=== PATIENT | male | born 1970 | race Caucasian/White ===

== ENCOUNTER → 2016-12-30 | Outpatient (CLI) | payer OTHER ==
--- NOTE | 2016-12-30 11:08 | NUR ---
Eval 2 Hr/Client presented for an eval as a referral from his ship's officer.
--- NOTE | 2017-01-01 07:10 | CDE ---
ADMIT: 12/30/2016 RM/LOC: [facility] MR#: [id number] [address] [place], [place] [id number] ROSE STINSON [address] [address] Chemical Dependency Evaluation SEX: M AGE: 46 : 1970 A. DEMOGRAPHICS: NAME: Rose Stinson DATE OF : 1970 EVALUATING COUNSELOR: Jose Daniel Watson, , LMHP, LADC, CSAT DATE OF EVALUATION: 12/30/2016 B. PRESENTING PROBLEM/CHIEF COMPLAINT: This client was on parole for a robbery charge. He was referred here for this evaluation by his energy control officer, Mary Lou Isidro. C. MEDICAL HISTORY: The client stated that he has asthma and he uses inhaler for that. He does have a bad back right now, but other than that, he denied having any medical issues. D. WORK/SCHOOL/ HISTORY: WORK: Currently, this client is working at [employer]. 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 Did not give any prior work history. EDUCATION: This client received his GED. He would like to learn more about [employer], possibly go to school to do that. 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 : This client has never been in the . E. ALCOHOL/DRUG ASSESSMENT SUMMARY: ALCOHOL: This client first drank alcohol at age 13. He minimized his drinking quite a bit. He said he would only drink 1 or 2 drinks once a month. He said his last use of alcohol was in 2010 right before he went to group home when he had a 12 pack. MARIJUANA: This client first smoked marijuana at age 15. He said he would smoke a joint about every 6 months. His last use of marijuana was in 2010 right before he went to group home, he smoked a joint. COCAINE: Client first snorted cocaine at age 26. He said he would snort 1 line a couple of times a year. He has not snorted any cocaine since 2007. METHAMPHETAMINE: This client first smoked meth at age 31, said he would do it about 3 times a year and has not smoked any meth since 2009 when he smoked a bowl. HALLUCINOGENS: This client first tried hallucinogens around age 22, said he only did it a couple of times and his last use was in 2010. HEROIN: No use reported. PRESCRIPTION DRUGS: No abuse reported. OTHER DRUGS (INHALANTS, OVER THE COUNTER, ETC): No abuse reported. NICOTINE: No use reported. ADMIT: 12/30/2016 RM/LOC: [facility] MR#: [id number] [address] [address] ROSE STINSON [address] [place] [address] Chemical Dependency Evaluation SEX: M AGE: 46 : 1970 Negative consequences of this client's drinking and alcohol use are his dad is very disgusted with him, his did not like it. He missed some work due to his drinking. He has had to pay fines and court costs which cost him a lot of money financially. He had sexual relations with people he would not have done that with if he had not been drinking. Legally, he has had some DUI's and assault charges that were under the influence of his alcohol use. F. LEGAL HISTORY: In 2008, this client had an assault charge and a DUI. In 2009, he had a second DUI. In 2010, he had a robbery charge. He ended up in group home from that robbery charge, otherwise he [facility]. G. FAMILY/SOCIAL/PEER HISTORY: This client was raised by his step-mom in [place], [place]. He described his family upbringing as good. He said his parents were when he was a baby when his mom left him. He denied that that this affected him at all. He said he gets along good with his step-mom and wonderful with his dad. This client enjoyed going with his dad to play horseshoes when he was a kid. He left home the last time at age 15. He was one time for 8 years. He denied having any children. However, his biosecurity officer said he has four. Marlon is 18, Neema is 17, Lissa is 13, and Jesusita is 9. He said his marriage ended because he was unfaithful. He is not in a relationship at this time. SEXUAL HISTORY AND TRAUMA: This client stated that he is heterosexual and he is comfortable with that orientation. He has had a frequent change of sex partners. He denied ever being the victim of sexual abuse or inflicting any aggressive sexual advances on others. First, he denied ever being the victim of physical abuse or inflicting physical abuse on others, but changed his mind when he was asked because he said he was abusive. SOCIAL RELATIONSHIPS: This client prefers to hang around people who do not drink or use drugs. The majority of his friends do not. He said his drug and alcohol use has not really affected him lately. He does spend time alone as he works a lot. He denied ever being involved in any gang activity. He said he was ashamed of his DUI's, DUS, and assault charges he got while he was under the influence of alcohol. Recreational and leisure activities he said he enjoys are playing horseshoes with family and friends and he has drank alcohol while doing that activity. He said he does not need more exercise. SPIRITUAL: This client does believe in God. He finds purpose and meaning in his life through his dad, friends, and family. He is not sure what the difference between spirituality and tenriism is. He does not belong to any ADMIT: 12/30/2016 RM/LOC: [facility] MR#: [id number] [address] [place] [id number] ROSE STINSON [address] [address] Chemical Dependency Evaluation SEX: M AGE: 46 : 1970 particular tenriism. H. PSYCHIATRIC/BEHAVIORAL HISTORY: This client stated he has never thought of suicide and is not considering it now. There is no family history of suicide and he denied ever having any counseling for behavior or mental health issues. I. COLLATERAL INFORMATION: An attempt to get a hold of this client's brother was unsuccessful at the time of this dictation. His energy control officer was talked to. She stated that he was drinking quite heavily before he was arrested. She also stated that he has 4 kids which he denied having in the interview process. THE DRINKER TYPE RATING: Is a measure of how the client perceives their own drinking and/or using. This rating is indicative of how resistant or accepting the person is to the drinking problem. The client chose their rating from the following classifications: ALCOHOL Total Abstainer Light Social (non-problem) Drinker Moderate Social (non-problem) Drinker User Heavy Social (non-problem)Drinker Problem Drinker Alcoholic OTHER DRUG Nonuser Light Social (non-problem) User Moderate Social (non-problem) User Heavy Social (non-problem) User Problem User Addicted/Dependent This client listed himself as a light to moderate social nonproblem drinker but did state that he is alcoholic and a light social nonproblem user of drugs. He listed his strengths as he is determined, he is respectful, and he is polite. Weaknesses are he is bad with money. SUBSTANCE ABUSE SUBTLE SCREENING INVENTORY (SASSI): The SASSI is an assessment tool specifically designed to provide a clearer picture of what lies beneath the facade presented by most patients or clients. Scores on this assessment aid in distinguishing nonabusers from abusers, ADMIT: 12/30/2016 RM/LOC: [facility] MR#: [id number] [address] [address] ROSE STINSON [address] [place] [id number] Chemical Dependency Evaluation SEX: M AGE: 46 : 1970 alcoholics from drug abusers and nondefensive clients from defensive ones. The incorporation of a "denial scale" further enhances the ability to make an accurate recommendation. This client scores indicate that he has a low probability of having a substance dependence disorder and his scores are as follows: Face Valid Alcohol (FVA): 3. Face Valid Other Drugs (FVOD): 2. Symptoms (SYM): 3. Obvious Attributes (OAT): 5. Subtle Attributes (SAT): 3. Defensiveness (DEF): 6. Supplemental Addiction Measure (GILMAR): 7. Family versus Controls (FAM): 9. Correctional (COR): 5. Random Answering Pattern (RAP): 0. These scores indicate that he has a low probability of having a substance dependence disorder. However, he stated that he filled that out just figuring over the last few years that he was in group home. He said he had the opportunity to drink or do drugs there but did not do it. We administered the ASI. Please see attached summary sheet. K. CLINICAL IMPRESSION: [place] I: F10.20, alcohol use disorder, severe. [place] II: V71.09, no diagnosis. [place] III: 799.9, deferred. [place] IV: Primary support group, economic problems, social environment, education problems, legal system problems, problems with access to health care. [place] V: Global assessment of functioning 45. This client appeared to be very open throughout the interview process. However, after his energy control officer was talked to, it was discovered that he was hiding some things. L. RECOMMENDATIONS PRESENTED TO CLIENT: This client was told that he would be referred to outpatient counseling. CLIENT/FAMILY RESPONSE: This client stated that other than the money part of it, he was open and willing to do outpatient counseling as he thinks he could benefit from it. ADMIT: 12/30/2016 [facility] MR#: [id number] [address] [address] ROSE STINSON [address] [place] [address] Chemical Dependency Evaluation SEX: M AGE: 46 : 1970 [facility] CLINICAL ASSESSMENT CRITERIA: Low/Medium/High Dimension 1 = Intoxication and Withdrawal (i.e. history of withdrawal, level of current use): Low. Dimension 2 = Medical (i.e. , diabetes, medications, chronic conditions): Low. Dimension 3 = Emotional/Behavior Conditions (i.e. psych history, impulsivity, depression, anxiety, trauma history): Medium. Dimension 4 = Treatment Acceptance/Resistance (i.e. past history, minimization/blame, acknowledgement of problem, pressure to seek treatment, does not feel they have a problem): High. Dimension 5 = Relapse Potential (i.e. inability to abstain, use despite consequences, significant preoccupation, relapse despite outpatient treatment attempts): Low. Dimension 6 = Recovery/Living Environment (i.e. current users reside in environment, family attitude, lack of consistent adult support in living environment, high exposure to using in social/work environment): Low. CRIMINOGENIC RISK FACTORS: Low/Moderate/High Antisocial Attitudes: Medium. Antisocial Peers: Medium. Self Control Skills: Low. Family Dysfunction: Medium. Past Criminality: Medium. Thank you for the opportunity to work with this client. Jose Daniel Watson, MS,LMHP,LADC, CSAT/ modl JOB #: [id number] CC:
== END | disposition home or self-care (01) ==
LOC: ADTC.GI 10-15 10:00
DX: F10.20 Alcohol dependence, uncomplicated (principal)

== ENCOUNTER → 2017-02-17 | Outpatient (CLI) | payer OTHER | END | disposition home or self-care (01) | LOC: PTH.S 10-23 10:30 | DX: E03.9 Hypothyroidism, unspecified (principal) ==